=== PATIENT | female | born 1990 | race Caucasian/White ===

== ENCOUNTER 2016-07-09 20:00 | Emergency (ER) | payer OTHER ==
[2016-07-09] MEDS ORDERED: Ketorolac 30 MG/ML SDV IVPUSH ONE (20:35)
[2016-07-09] MEDS ORDERED: Sodium Chloride 0.9% 1,000 ML IV ONE (20:35)
--- NOTE | 2016-07-09 20:48 | EDM.PDOC ---
ED HPI GI/ABDOMINAL - General Chief Complaint: Genitourinary Problem Stated Complaint: BACK/ABDOMINAL PAIN Time Seen by Provider: 07/09/16 20:37 Source of Information: Reports: Patient History Limitations: Reports: No limitations - History of Present Illness INITIAL COMMENTS - FREE TEXT/NARRATIVE: History of present illness: [25-year-old female comes in complaining of burning, urgency, frequency and now low back pain. 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 Past medical history: As per history of present illness and as reviewed below otherwise noncontributory. Surgical history: As per history of present illness and as reviewed below otherwise noncontributory. Social history: No reported history of drug or alcohol abuse. Family history: As per history of present illness and as reviewed below otherwise noncontributory. Physical exam: HEENT: Atraumatic, normocephalic, pupils reactive, negative for conjunctival pallor or scleral icterus, mucous membranes moist, throat clear, neck supple, nontender, trachea midline. Lungs: Clear to auscultation, breath sounds equal bilaterally, chest nontender. Heart: S1S2, regular, negative for clicks, rubs, or JVD. Abdomen: Soft, nondistended, nontender. Negative for masses or hepatosplenomegaly. Positive for costovertebral tenderness. Pelvis: Stable nontender. Genitourinary: Deferred. Rectal: Deferred. Extremities: Atraumatic, negative for cords or calf pain. Neurovascular unremarkable. Neuro: Awake, alert, oriented. Cranial nerves II through XII unremarkable. Cerebellum unremarkable. Motor and sensory unremarkable throughout. Exam nonfocal. Global assessment was benign save subjective complaints of discomfort and positive for costovertebral tenderness as noted Diagnostics: [UA] Therapeutics: [] Impression: [UTI] Plan: [Anabiotic] Definitive disposition and diagnosis as appropriate pending reevaluation and review of above. - Related Data Allergies/ADRs: Allergies Allergy/AdvReac Type Severity Reaction Status Date / Time No Known Allergies Allergy Verified 07/09/16 20:30 Home Meds: Home Meds Acetaminophen [Tylenol Extra Strength] 1,500 mg PO ASDIRECTED PRN 11/17/13 [ History] Nitrofurantoin Monohyd/M-Cryst [Macrobid 100 mg Capsule] 100 mg PO BID #20 capsule 07/09/16 [Rx] Past Medical History - Past Health History Medical/Surgical History: Denies Medical/Surgical History - Infectious Disease History Infectious Disease History: Reports: Chicken pox Social & Family History - Tobacco Use Smoking Status *Q: Current Every Day Smoker Years of Tobacco use: 12 - Alcohol Use Days Per Week of Alcohol Use: 0 - Recreational Drug Use Recreational Drug Use: No ED ROS GENERAL - Review of Systems Review Of Systems: See Below (See history of present illness) ED EXAM, GI/ABD - Physical Exam Exam: See Below (See history of present illness) Course - Vital Signs Last Recorded V/S: Last Vital Signs Temp 36.7 C 07/09/16 20:30 Pulse 76 07/09/16 20:30 Resp 16 07/09/16 20:30 BP 134/87 07/09/16 20:30 Pulse Ox 100 07/09/16 20:30 - Orders/Labs/Meds Orders: Active Orders 24 hr Category Date Time Status Sodium Chloride 0.9% [Normal Saline] 1,000 ml Med 07/09/16 20:35 Ordered IV STAT Medication Orders Sodium Chloride (Normal Saline) 1,000 mls @ 999 mls/hr IV STAT ONE Stop: 07/09/16 21:35 Last Admin: 07/09/16 20:49 Dose: 999 mls/hr Labs: Laboratory Tests 07/09/16 07/09/16 Range/Units 20:25 21:06 Urine Color YELLOW Urine Appearance CLOUDY Urine pH 7.0 (5.0-8.0) Ur Specific [place] 1.015 (1.001-1.035) Urine Protein 100 (NEGATIVE) mg/dL Urine Glucose (UA) NEGATIVE (NEGATIVE) mg/dL Urine Ketones NEGATIVE (NEGATIVE) mg/dL Urine Occult Blood LARGE H (NEGATIVE) Urine Nitrite NEGATIVE (NEGATIVE) Urine Bilirubin NEGATIVE (NEGATIVE) Urine Urobilinogen 0.2 (<2.0) EU/dL Ur Leukocyte Esterase SMALL (NEGATIVE) Urine RBC 25-30 (0-2/HPF) Urine WBC 6-8 (0-5/HPF) Ur Epithelial Cells FEW (NONE-FEW) Urine Bacteria 1+ H (NEGATIVE) Urine HCG, Qual NEGATIVE (NEGATIVE) Meds: Medications Generic Name Dose Route Start Last Admin Trade Name Freq PRN Reason Stop Dose Admin Sodium Chloride 1,000 mls @ 999 mls/hr 07/09/16 20:35 07/09/16 20:49 Normal Saline IV 07/09/16 21:35 999 mls/hr STAT ONE Administration Discontinued Medications Generic Name Dose Route Start Last Admin Trade Name Freq PRN Reason Stop Dose Admin Ketorolac Tromethamine 30 mg 07/09/16 20:35 07/09/16 20:50 Toradol IVPUSH 07/09/16 20:36 30 mg ONETIME ONE Administration Departure - Departure Time of Disposition: 21:30 Disposition: Home, Self-Care 01 Condition: good Clinical Impression: UTI, Urinary tract infectious disease Prescriptions: Nitrofurantoin Monohyd/M-Cryst [Macrobid 100 mg Capsule] 100 mg PO BID #20 capsule Instructions: Urinary Tract Infection, Adult, [id number] Forms: ED Department Discharge Additional Instructions: The following information is given to patients seen in the emergency department who are being discharged to home. This information is to outline your options for follow-up care. We provide all patients seen in our emergency department with a follow-up referral. The need for follow-up, as well as the timing and circumstances, are variable depending upon the specifics of your emergency department visit. If you don't have a primary care physician on staff, we will provide you with a referral. We always advise you to contact your personal physician following an emergency department visit to inform them of the circumstance of the visit and for follow-up with them and/or the need for any referrals to a consulting specialist. The emergency department will also refer you to a specialist when appropriate. This referral assures that you have the opportunity for follow-up care with a specialist. All of these measure are taken in an effort to provide you with optimal care, which includes your follow-up. Under all circumstances we always encourage you to contact your private physician who remains a resource for coordinating your care. When calling for follow-up care, please make the office aware that this follow-up is from your recent emergency room visit. If for any reason you are refused follow-up, please contact the [facility] Emergency Department at and asked to speak to the emergency department charge nurse. Take medication as directed All up with PCP 1-2 days Return to ED as needed as discussed - My Orders Last 24 Hours: My Active Orders 07/09/16 20:35 Sodium Chloride 0.9% [Normal Saline] 1,000 ml IV STAT - Assessment/Plan Last 24 Hours: My Active Orders 07/09/16 20:35 Sodium Chloride 0.9% [Normal Saline] 1,000 ml IV STAT
[2016-07-09 22:24] VITALS: BP 95/63
== END 2016-07-09 22:06 | disposition home or self-care (01) ==
LOC: MW.ED 20:00
DX: N39.0 Urinary tract infection, site not specified (principal); F17.200 Nicotine dependence, unspecified, uncomplicated
CPT/HCPCS: 81001; 81025; 96361; 96374; 99284; J1885; J7040

== ENCOUNTER → 2016-08-01 | Outpatient (CLI) | payer MEDICAID, OTHER | LOC: MW.CHOBGYN 11:37 | PROVIDERS: ATTEND Nurse Practitioner Women's Health | DX: R39.9 Unspecified symptoms and signs involving the genitourinary system (principal); R53.83 Other fatigue; R63.0 Anorexia; R10.2 Pelvic and perineal pain | CPT/HCPCS: 36415; 81001; 82607; 82728; 84443; 84703; 85025 ==

== ENCOUNTER → 2016-08-03 | Outpatient (CLI) | payer OTHER ==
--- NOTE | 2016-08-03 14:03 | US ---
EXAMINATION: Transvaginal pelvic ultrasound HISTORY: Pain COMPARISON: None TECHNIQUE: Grayscale, color Doppler, and spectral Doppler images obtained transvaginally. FINDINGS: Uterus appears normal in size, contour, and echogenicity without a focal hepatic mass. The endometrial stripe measures 1 cm. Right ovary is normal in size, contour, and echogenicity demonstrating normal color and spectral Dop pler flow. Right ovary contains several small follicles. Adjacent to the left ovary there is a solid -appearing vascular round echogenic nodule measuring 2.2 cm. This appears to involve or at least abu t the left ovary. There is a trace free pelvic fluid, likely physiologic. IMPRESSION: 1. Indeterminate vascular 2.2 cm probable left ovarian nodule. If further evaluation is needed consi briana MRI.
== END ==
LOC: MW.US 10:22
PROVIDERS: ATTEND Nurse Practitioner Women's Health
DX: R63.0 Anorexia (principal); R53.83 Other fatigue; R10.2 Pelvic and perineal pain
CPT/HCPCS: 76830; 76830-26

== ENCOUNTER → 2016-08-07 | Outpatient (CLI) | payer OTHER | LOC: MW.CHOBGYN 08:43 | PROVIDERS: ATTEND Nurse Practitioner Women's Health | DX: N83.9 Noninflammatory disorder of ovary, fallopian tube and broad ligament, unspecified (principal) | CPT/HCPCS: 36415; 86304 ==

== ENCOUNTER 2016-09-13 07:37 | Day surgery (SDC) | payer OTHER ==
[2016-09-12 09:52] LABS: CHLORIDE,CL 107 mmol/L (98-110); SODIUM,NA 140 mmol/L (136-146)
[~2016-09-13 07:37] MED LIST: Lactated Ringers 1,000 ML IV SCH; Lidocaine 2% 5 ML SDV ONE; Midazolam 1 MG/ML 2 ML SDV ONE; Ondansetron 4 MG/2 ML SDV ONE; Propofol 200 MG/20 ML SDV ONE; Sodium Chloride 0.9% 10 ML Syringe FLUSH PRN; Sodium Chloride 0.9% 2.5 ML Syringe FLUSH PRN; Succinylcholine/Normal Saline 200 MG/10 ML Syringe ONE; fentaNYL 250 MCG/5 ML SDV ONE
[2016-09-13] MEDS ORDERED: Octyl 2-Cyanoacrylate 1 Tube ONE (07:49)
[2016-09-13] MEDS ORDERED: Scopolamine 1.5 MG Transdermal Patch TRDERM PRN (08:16)
--- NOTE | 2016-09-13 08:16 | PCM.PREANE ---
Preanesthetic Assessment - Anesthesia/Transfusion/Family Hx Anesthesia History: Prior Anesthesia Without Reaction Family History of Anesthesia Reaction: No Transfusion History: No Prior Transfusion(s) - Review of Systems General: No Symptoms Pulmonary: No Symptoms Cardiovascular: No Symptoms Gastrointestinal: No symptoms Neurological: No Symptoms Other: Reports: None - Physical Assessment NPO Status Date: 09/12/16 Height: 1.52 m Weight: 45.359 kg ASA Class: 1 Mental Status: Alert & Oriented x3 Airway Class: Mallampati = 1 Dentition: Reports: Normal Dentition ROM/Head Extension: Full Lungs: Clear to auscultation, Normal respiratory effort Cardiovascular: Regular Rate, Regular Rhythm - Lab Values: Laboratory Last Values WBC 7.35 K/uL (4.0-11.0) 09/12/16 09:19 RBC 4.77 M/uL (4.30-5.90) 09/12/16 09:19 Hgb 14.7 g/dL (12.0-16.0) 09/12/16 09:19 Hct 43.3 % (36.0-46.0) 09/12/16 09:19 MCV 90.8 fL (80.0-98.0) 09/12/16 09:19 MCH 30.8 pg (27.0-32.0) 09/12/16 09:19 MCHC 33.9 g/dL (31.0-37.0) 09/12/16 09:19 RDW Std Deviation 41.8 fl (28.0-62.0) 09/12/16 09:19 RDW Coeff of Arabella 13 % (11.0-15.0) 09/12/16 09:19 Plt Count 310 K/uL (150-400) 09/12/16 09:19 MPV 9.10 fL (7.40-12.00) 09/12/16 09:19 Nucleated RBC % 0.0 /100WBC 09/12/16 09:19 Nucleated RBCs # 0 K/uL 09/12/16 09:19 Sodium 140 mmol/L (136-146) 09/12/16 09:19 Potassium 4.6 mmol/L (3.5-5.1) 09/12/16 09:19 Chloride 107 mmol/L (98-110) 09/12/16 09:19 Carbon Dioxide 25 mmol/L (21-31) 09/12/16 09:19 BUN 9 mg/dL (6.0-23.0) 09/12/16 09:19 Creatinine 0.8 mg/dL (0.6-1.5) 09/12/16 09:19 Est Cr Clr Drug Dosing 76.31 mL/min 09/12/16 09:19 Estimated GFR (MDRD) > 60.0 ml/min 09/12/16 09:19 Glucose 94 mg/dL (60-110) 09/12/16 09:19 Calcium 9.4 mg/dL (8.8-10.8) 09/12/16 09:19 HCG, Qual NEGATIVE (NEG) 09/12/16 09:19 Blood Type O POSITIVE 09/12/16 09:19 Antibody Screen NEGATIVE 09/12/16 09:19 - Allergies Allergies/Adverse Reactions: Allergies Allergy/AdvReac Type Severity Reaction Status Date / Time No Known Allergies Allergy Verified 09/10/16 11:22 - Anesthesia Plan Pre-Op Medication Ordered: Other (scop) - Acknowledgements Anesthesia Type Planned: General Anesthesia Pt an Appropriate Candidate for the Planned Anesthesia: Yes Alternatives and Risks of Anesthesia Discussed w Pt/Guardian: Yes Pt/Guardian Understands and Agrees with Anesthesia Plan: Yes PreAnesthesia Questionnaire - Past Health History Medical/Surgical History: Denies Medical/Surgical History HEENT History: Reports: None Cardiovascular History: Reports: None Respiratory History: Reports: None Gastrointestinal History: Reports: GERD Genitourinary History: Reports: None SKATE HOP History: Reports: Musculoskeletal History: Reports: None Neurological History: Reports: None Psychiatric History: Reports: None Endocrine/Metabolic History: Reports: None Hematologic History: Reports: None Immunologic History: Reports: None Oncologic (Cancer) History: Reports: None Dermatologic History: Reports: None - Infectious Disease History Infectious Disease History: Reports: Chicken Pox - Past Surgical History Head Surgeries/Procedures: Reports: None HEENT Surgical History: Reports: Oral Surgery Other HEENT Surgeries/Procedures: wisdom teeth Female Surgical History: Reports: None - SUBSTANCE USE Smoking Status *Q: Current Every Day Smoker Tobacco Use Within Last Twelve Months: Cigarettes Days Per Week of Alcohol Use: 0 Recreational Drug Use History: Yes Recreational Drug Type: Reports: Marijuana/Hashish Recreational Drug Last Use: 10 years ago - HOME MEDS Home Medications: Home Meds PNV95/Ferrous Fumarate/FA [ Tablet] 1 tab PO DAILY 09/10/16 [History] - CURRENT (IN HOUSE) MEDS Current Meds: Current Medications Lactated Ringer's (Ringers, Lactated) 1,000 mls @ 125 mls/hr IV ASDIRECTED NICHOL Sodium Chloride (Saline Flush) 10 ml FLUSH ASDIRECTED PRN PRN Reason: Keep Vein Open Sodium Chloride (Saline Flush) 2.5 ml FLUSH ASDIRECTED PRN PRN Reason: Keep Vein Open Discontinued Medications Fentanyl (Sublimaze) Confirm Administered Dose 250 mcg .ROUTE .STK-MED ONE Stop: 09/13/16 07:11 Lidocaine (Xylocaine-Mpf 2%) Confirm Administered Dose 5 ml .ROUTE .STK-MED ONE Stop: 09/13/16 07:10 Midazolam HCl (Versed 1 Mg/Ml) Confirm Administered Dose 2 mg .ROUTE .STK-MED ONE Stop: 09/13/16 07:10 Octyl Cyanoacrylate (Dermabond Advance) Confirm Administered Dose 1 applic .ROUTE .STK-MED ONE Stop: 09/13/16 07:50 Ondansetron HCl (Zofran) Confirm Administered Dose 4 mg .ROUTE .STK-MED ONE Stop: 09/13/16 07:10 Propofol (Diprivan 20 Ml) Confirm Administered Dose 200 mg .ROUTE .STK-MED ONE Stop: 09/13/16 07:10 Succinylcholine Chloride (Succinylcholine In Ns Pf) Confirm Administered Dose 200 mg .ROUTE .STK-MED ONE Stop: 09/13/16 07:10
[2016-09-13] MEDS ORDERED: Fluorescein 5 ML Vial ONE (08:33)
[2016-09-13] MEDS ORDERED: Rocuronium 10 MG/ML 10 ML Syringe ONE (09:08)
[2016-09-13] MEDS ORDERED: Phenylephrine/Normal Saline 100 MCG/ML 10 ML Syringe ONE (09:11)
[2016-09-13] MEDS ORDERED: ePHEDrine 50 MG/ML SDV ONE (09:14)
[2016-09-13] MEDS ORDERED: Labetalol 5 MG/ML 5 ML Syringe ONE (09:25)
--- NOTE | 2016-09-13 09:58 | PCM.OPNOTE ---
- General Post-Op/Procedure Note Date of Surgery/Procedure: 09/13/16 Operative Procedure(s): Dignostic Laparscopy removal of L Dermoid cyst. Pre Op Diagnosis: L dermoid cyst. Post-Op Diagnosis: Same Anesthesia Technique: General ET tube Primary Surgeon: Eugene Stone Biomechanical Engineer: Michelle Gutierres EBL in mLs: 25 Complications: None Condition: Good
--- NOTE | 2016-09-13 09:59 | PCM.DCSUM1 ---
Discharge Summary - Discharge Data Discharge Date: 09/13/16 Discharge Disposition: Home, Self-Care 01 Condition: Good - Patient Summary/Data Operative Procedure(s) Performed: Dignostic Laparscopy removal of L Dermoid cyst. - Patient Instructions Diet: Usual Diet as Tolerated Driving: Do Not Drive Showering/Bathing: May Shower Wound/Incision Care: Keep Operative Site/Wound Site Clean and Dry Notify Provider of: Fever, Increased Pain, Swelling and Redness - Discharge Plan Home Medications: Home Meds PNV95/Ferrous Fumarate/FA [ Tablet] 1 tab PO DAILY 09/10/16 [History] - General Info Date of Service: 09/13/16 Functional Status: Reports: pain controlled - Review of Systems General: Reports: No Symptoms HEENT: Reports: no symptoms Pulmonary: Reports: no symptoms Cardiovascular: Reports: No Symptoms Gastrointestinal: Reports: No symptoms Genitourinary: Reports: no symptoms Musculoskeletal: Reports: no symptoms Skin: Reports: no symptoms Neurological: Reports: No Symptoms Psychiatric: Reports: no symptoms - Patient Data Vitals - Most Recent: Last Vital Signs Temp 36.6 C 09/13/16 08:05 Pulse 72 09/13/16 08:05 Resp 16 09/13/16 08:05 BP 105/65 09/13/16 08:05 Pulse Ox 99 09/13/16 08:05 Weight - Most Recent: 45.359 kg Lab Results - Last 24 hrs: Laboratory Results - last 24 hr 09/12/16 Range/Units 09:19 Blood Type O POSITIVE Antibody Screen NEGATIVE Med Orders - Current: Current Medications Fentanyl (Sublimaze) 50 mcg IVPUSH Q5M PRN PRN Reason: Pain (severe 7-10) Stop: 09/14/16 09:42 Lactated Ringer's (Ringers, Lactated) 1,000 mls @ 125 mls/hr IV ASDIRECTED NICHOL Last Admin: 09/13/16 08:20 Dose: 125 mls/hr Scopolamine (Transderm-Scop) 1.5 mg TRDERM Q72H PRN PRN Reason: Nausea/Vomiting Last Admin: 09/13/16 08:25 Dose: 1.5 mg Sodium Chloride (Saline Flush) 10 ml FLUSH ASDIRECTED PRN PRN Reason: Keep Vein Open Sodium Chloride (Saline Flush) 2.5 ml FLUSH ASDIRECTED PRN PRN Reason: Keep Vein Open Discontinued Medications Ephedrine Sulfate (Ephedrine Sulfate) Confirm Administered Dose 50 mg .ROUTE .STK-MED ONE Stop: 09/13/16 09:15 Fentanyl (Sublimaze) Confirm Administered Dose 250 mcg .ROUTE .STK-MED ONE Stop: 09/13/16 07:11 Fluorescein Sodium (Ak-Fluor) Confirm Administered Dose 5 ml .ROUTE .STK-MED ONE Stop: 09/13/16 08:34 Glycopyrrolate () Confirm Administered Dose 1 mg .ROUTE .STK-MED ONE Stop: 09/13/16 09:18 Labetalol HCl (Normodyne) Confirm Administered Dose 25 mg .ROUTE .STK-MED ONE Stop: 09/13/16 09:26 Lidocaine (Xylocaine-Mpf 2%) Confirm Administered Dose 5 ml .ROUTE .STK-MED ONE Stop: 09/13/16 07:10 Midazolam HCl (Versed 1 Mg/Ml) Confirm Administered Dose 2 mg .ROUTE .STK-MED ONE Stop: 09/13/16 07:10 Octyl Cyanoacrylate (Dermabond Advance) Confirm Administered Dose 1 applic .ROUTE .STK-MED ONE Stop: 09/13/16 07:50 Ondansetron HCl (Zofran) Confirm Administered Dose 4 mg .ROUTE .STK-MED ONE Stop: 09/13/16 07:10 Phenylephrine HCl (Phenylephrine In Ns 100 Mcg/Ml) Confirm Administered Dose 1 mg .ROUTE .STK-MED ONE Stop: 09/13/16 09:12 Propofol (Diprivan 20 Ml) Confirm Administered Dose 200 mg .ROUTE .STK-MED ONE Stop: 09/13/16 07:10 Rocuronium Zahl (Zemuron) Confirm Administered Dose 100 mg .ROUTE .STK-MED ONE Stop: 09/13/16 09:09 Succinylcholine Chloride (Succinylcholine In Ns Pf) Confirm Administered Dose 200 mg .ROUTE .STK-MED ONE Stop: 09/13/16 07:10 - Exam General: Reports: alert, oriented HEENT: Reports: Pupils equal, Pupils reactive, EOMI, Mucous membr. moist/pink Neck: Reports: supple Lungs: Reports: Clear to auscultation, Normal respiratory effort Cardiovascular: Reports: Regular Rate, Regular Rhythm Abdomen: Reports: bowel sounds present, soft, no tenderness, no distension (Female) Exam: Normal External Exam, Normal Speculum Exam, Normal Bimanual Exam Rectal (Female) Exam: Normal Exam, Normal Rectal Tone Back Exam: Reports: Normal Inspection, Full Range of Motion Extremities: Reports: no edema, normal pulses Skin: Reports: warm, dry, intact Wound/Incisions: Reports: healing well Neurological: Reports: no new focal deficit Psy/Mental Status: Reports: alert, normal affect, normal mood *Q Meaningful Use (DIS) - VTE *Q VTE Criteria *Q: - Stroke *Q Stroke Criteria *Q: - AMI *Q AMI Criteria *Q:
[2016-09-13] MEDS ORDERED: Ketorolac 30 MG/ML SDV IVPUSH PRN (10:00)
[2016-09-13] MEDS ORDERED: Promethazine 25 MG/ML SDV IM PRN (10:00)
[2016-09-13] MEDS ORDERED: Ondansetron 4 MG/2 ML SDV IVPUSH PRN (10:00)
[2016-09-13] MEDS ORDERED: Morphine 4 MG/ML Syringe IVPUSH PRN (10:00)
[2016-09-13] MEDS ORDERED: Acetaminophen/oxyCODONE 325-5 MG Tab PO PRN ×2 (10:00)
[2016-09-13] MEDS ORDERED: Morphine 2 MG/ML Syringe IVPUSH PRN (10:00)
[2016-09-13] MEDS ORDERED: Ketorolac 30 MG/ML SDV IVPUSH ONE (10:00)
--- NOTE | 2016-09-13 10:08 | PCM.POSTAN ---
POST ANESTHESIA ASSESSMENT - MENTAL STATUS Mental Status: alert, oriented - RESPIRATORY Respiratory Status: respiratory rate WNL, airway patent, O2 saturation stable - CARDIOVASCULAR CV Status: pulse rate WNL, blood pressure stable - GASTROINTESTINAL GI Status: no symptoms - PAIN Pain Score: 0 - POST OP HYDRATION Hydration Status: adequate & stable
[2016-09-13] MEDS: fentaNYL 100 MCG/2 ML SDV IVPUSH PRN ×2 (10:35→10:40)
--- NOTE | 2016-09-13 12:05 | OR ---
SURGEON: Eugene Stone MD DATE OF PROCEDURE: 09/13/2016 PREOPERATIVE DIAGNOSIS: Left dermoid cyst. POSTOPERATIVE DIAGNOSIS: Left dermoid cyst. OPERATION PERFORMED: Diagnostic laparoscopy, excision of left dermoid cyst and peritoneal lavage. THREAD PULLER: FLORINA Kothari ANESTHESIA: General endotracheal intubation, Donald Tadeo and Dr. Jacob. ESTIMATED BLOOD LOSS: Less than 50 mL. COMPLICATIONS: None. FINDINGS: Left dermoid cyst. The right ovary essentially was normal. INDICATIONS FOR SURGERY: Refer to the admit note. PROCEDURE IN DETAIL: The patient was brought to the OR, properly identified, and after adequate level of general anesthesia, the patient was placed in lithotomy position. Prepped and draped in sterile fashion as usual. Straight catheter was used to empty the bladder and then a Hulka manipulator was placed in the uterus for manipulation, then the operation was shifted abdominally. Stab wound was done beneath the umbilicus. The Veress needle was used to enter the peritoneal cavity and that cavity was insufflated with 2.5 L of carbon dioxide and then the central trocar 5 mm was entered infraumbilically using the Visiport technique. Once we entered, we placed the patient in steep Trendelenburg, a 10-12 trocar was placed in the left iliac fossa and two 5 mm trocars, one suprapubically and one in the right iliac fossa done under direct vision. Inspection of the pelvis revealed the above-mentioned dictated findings that the uterus was normal. Both ovaries were normal. The right ovary was normal. The left ovary was large with a dermoid cyst. The operation was started by using Endo grasper to stabilize the left ovary, and using unipolar electrocautery circular incision was done in the ovarian capsules. Once the ovarian capsule was entered, then with sharp and blunt dissection the cyst was identified and again with sharp and blunt dissection using the bipolar electrocautery judiciously, the dermoid cyst was peeled away from the left ovary and removed and placed in an endobag and removed from the abdomen. After that, thorough irrigation of the pelvis and thorough inspection of the left ovary, there was no oozing and no bleeding. After irrigating and satisfying there was no problem and no complication, the procedure was ended and the abdomen was deflated. The instrument and sponge counts were correct. The multiple laparoscopic incisions were closed in layers. The patient tolerated the procedure well and went to recovery room in stable general condition. MIRI WHARTON /[id number]
--- NOTE | 2016-09-13 12:34 | PCM48HPAN ---
Post Anesthesia Note - EVALUATION WITHIN 48HRS OF ANESTHETIC Vital Signs in Normal Range: Yes Patient Participated in Evaluation: Yes Respiratory Function Stable: Yes Airway Patent: Yes Cardiovascular Function Stable: Yes Hydration Status Stable: Yes Pain Control Satisfactory: Yes Nausea and Vomiting Control Satisfactory: Yes Mental Status Recovered: Yes
[2016-09-13 13:28] VITALS: BP 100/64
== END 2016-09-13 12:45 | disposition home or self-care (01) ==
LOC: MW.SDS 07:37
PROVIDERS: ATTEND Obstetrics & Gynecology
PROC: 0UB14ZZ Excision of Left Ovary, Percutaneous Endoscopic Approach (ICD-10-PCS; principal; 2016-09-13)
DX: D27.1 Benign neoplasm of left ovary (principal); F17.210 Nicotine dependence, cigarettes, uncomplicated; Z79.899 Other long term (current) drug therapy; Z98.890 Other specified postprocedural states
CPT/HCPCS: 36415; 58662; 80048; 84703; 85027; 86850; 86900; 86901; A9270; J2250; J2405; J3010; J7120; 00840; 88307; J2704

== ENCOUNTER 2016-09-17 17:15 | Emergency (ER) | payer OTHER ==
--- NOTE | 2016-09-17 17:38 | EDM.PDOC ---
ED HPI GENERAL MEDICAL PROBLEM - General Chief Complaint: General Stated Complaint: PT LIGHTHEADED Time Seen by Provider: 09/17/16 17:27 - History of Present Illness INITIAL COMMENTS - FREE TEXT/NARRATIVE: HISTORY AND PHYSICAL: History of present illness: Patient 26-year-old female presents with concern chest pain she's had this since surgery last week for which she had a gynecological laparoscopy she had pain immediately postop and has had it since been no shortness of breath slightly anxious no nausea no vomiting no other complaints Review of systems: As per history of present illness and below otherwise all systems reviewed and negative. Past medical history: As per history of present illness and as reviewed below otherwise noncontributory. Surgical history: As per history of present illness and as reviewed below otherwise noncontributory. Social history: No reported history of drug or alcohol abuse. Family history: As per history of present illness and as reviewed below otherwise noncontributory. Physical exam: HEENT: Atraumatic, normocephalic, pupils reactive, negative for conjunctival pallor or scleral icterus, mucous membranes moist, throat clear, neck supple, nontender, trachea midline. Lungs: Clear to auscultation, breath sounds equal bilaterally, chest nontender. Heart: S1S2, regular, negative for clicks, rubs, or JVD. Abdomen: Soft, nondistended, nontender. Negative for masses or hepatosplenomegaly. Negative for costovertebral tenderness. Pelvis: Stable nontender. Genitourinary: Deferred. Rectal: Deferred. Extremities: Atraumatic, negative for cords or calf pain. Neurovascular unremarkable. Neuro: Awake, alert, oriented. Cranial nerves II through XII unremarkable. Cerebellum unremarkable. Motor and sensory unremarkable throughout. Exam nonfocal. Diagnostics: CBC CMP EKG chest x-ray d-dimer Therapeutics: None Impression: #1 atypical chest pain Definitive disposition and diagnosis as appropriate pending reevaluation and review of above. right lower rib area Pain Score (Numeric/FACES): 8 - Related Data Allergies Allergy/AdvReac Type Severity Reaction Status Date / Time No Known Allergies Allergy Verified 09/17/16 17:18 Home Meds: Home Meds PNV95/Ferrous Fumarate/FA [ Tablet] 1 tab PO DAILY 09/10/16 [History] Cyclobenzaprine [Flexeril] 1 tab PO Q8HR PRN 09/17/16 [History] Diclofenac Potassium [Zipsor] 50 mg PO ASDIRECTED PRN 09/17/16 [History] oxyCODONE HCl/Acetaminophen [Percocet 7.5-325 mg Tablet] 1 tab PO Q4HR PRN 09/17 [History] Past Medical History - Past Health History Medical/Surgical History: Denies Medical/Surgical History HEENT History: Reports: None Cardiovascular History: Reports: None Respiratory History: Reports: None Gastrointestinal History: Reports: GERD Genitourinary History: Reports: None 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) Other OB/BYN History: ovarian cyst Musculoskeletal History: Reports: None Neurological History: Reports: None Psychiatric History: Reports: None Endocrine/Metabolic History: Reports: None Hematologic History: Reports: None Immunologic History: Reports: None Oncologic (Cancer) History: Reports: None Dermatologic History: Reports: None - Infectious Disease History Infectious Disease History: Reports: Chicken Pox - Past Surgical History Head Surgeries/Procedures: Reports: None HEENT Surgical History: Reports: Oral Surgery Other HEENT Surgeries/Procedures: wisdom teeth GI Surgical History: Reports: Other (See Below) Other GI Surgeries/Procedures: lap surgery due to left ovarian cyst Social & Family History - Family History Family Medical History: Noncontributory - Tobacco Use Smoking Status *Q: Current Every Day Smoker Years of Tobacco use: 15 Packs/Tins Daily: 0.5 - Alcohol Use Days Per Week of Alcohol Use: 0 - Recreational Drug Use Recreational Drug Use: Yes Drug Use in Last 12 Months: No Recreational Drug Type: Reports: Marijuana/Hashish Recreational Drug Last Use: 10 years ago ED ROS GENERAL - Review of Systems Review Of Systems: ROS reveals no pertinent complaints other than HPI. ED EXAM, GENERAL - Physical Exam Exam: See Below (See dictation) Course - Vital Signs Last Recorded V/S: Last Vital Signs Temp 36.9 C 09/17/16 17:19 Pulse 84 09/17/16 17:19 Resp 20 09/17/16 17:19 BP 125/62 09/17/16 17:19 Pulse Ox 98 09/17/16 17:19 - Orders/Labs/Meds Orders: Active Orders 24 hr Category Date Time Status EKG 12 Lead [EKG Documentation Completion] [RC] STAT Care 09/17/16 17:25 Active Chest 2V [CR] Stat Exams 09/17/16 17:29 Taken Chest PE [Ang Chest] [CT] Stat Exams 09/17/16 18:40 Taken Labs: Laboratory Tests 09/17/16 09/17/16 09/17/16 Range/Units 17:37 17:37 17:37 WBC 5.36 (4.0-11.0) K/uL RBC 3.94 L (4.30-5.90) M/uL Hgb 11.9 L (12.0-16.0) g/dL Hct 35.7 L (36.0-46.0) % MCV 90.6 (80.0-98.0) fL MCH 30.2 (27.0-32.0) pg MCHC 33.3 (31.0-37.0) g/dL RDW Std Deviation 41.2 (28.0-62.0) fl RDW Coeff of Arabella 12 (11.0-15.0) % Plt Count 264 (150-400) K/uL MPV 9.20 (7.40-12.00) fL Neut % (Auto) 57.3 (48.0-80.0) % Lymph % (Auto) 30.2 (16.0-40.0) % Davidson % (Auto) 8.4 (0.0-15.0) % Eos % (Auto) 3.2 (0.0-7.0) % Baso % (Auto) 0.9 (0.0-1.5) % Neut # (Auto) 3.1 (1.4-5.7) K/uL Lymph # (Auto) 1.6 (0.6-2.4) K/uL Davidson # (Auto) 0.5 (0.0-0.8) K/uL Eos # (Auto) 0.2 (0.0-0.7) K/uL Baso # (Auto) 0.1 (0.0-0.1) K/uL Nucleated RBC % 0.0 /100WBC Nucleated RBCs # 0 K/uL D-Dimer, Quantitative 0.63 H (0.0-0.52) mg/LFEU Sodium 139 (136-146) mmol/L Potassium 3.8 (3.5-5.1) mmol/L Chloride 108 (98-110) mmol/L Carbon Dioxide 22 (21-31) mmol/L BUN 7 (6.0-23.0) mg/dL Creatinine 0.8 (0.6-1.5) mg/dL Est Cr Clr Drug Dosing 75.54 mL/min Estimated GFR (MDRD) > 60.0 ml/min Glucose 102 (60-110) mg/dL Calcium 8.7 L (8.8-10.8) mg/dL Total Bilirubin 0.3 (0.1-1.5) mg/dL AST 14 (5-40) IU/L ALT 8 (8-54) IU/L Alkaline Phosphatase 49 (40-150) Total Protein 6.4 (6.0-8.0) g/dL Albumin 3.8 (3.5-5.0) g/dL Globulin 2.6 (2.0-3.5) g/dL Albumin/Globulin Ratio 1.5 (1.3-2.8) Meds: Medications Discontinued Medications Generic Name Dose Route Start Last Admin Trade Name Freq PRN Reason Stop Dose Admin Iopamidol 50 ml 09/17/16 19:17 09/17/16 19:20 Isovue Multipack-370 (76%) IVPUSH 09/17/16 19:18 50 ml ONETIME STA Administration Departure - Departure Time of Disposition: 19:47 Disposition: Home, Self-Care 01 Condition: Good Clinical Impression: Chest pain - Discharge Information Forms: ED Department Discharge Additional Instructions: The following information is given to patients seen in the emergency department who are being discharged to home. This information is to outline your options for follow-up care. We provide all patients seen in our emergency department with a follow-up referral. The need for follow-up, as well as the timing and circumstances, are variable depending upon the specifics of your emergency department visit. If you don't have a primary care physician on staff, we will provide you with a referral. We always advise you to contact your personal physician following an emergency department visit to inform them of the circumstance of the visit and for follow-up with them and/or the need for any referrals to a consulting specialist. The emergency department will also refer you to a specialist when appropriate. This referral assures that you have the opportunity for followup care with a specialist. All of these measure are taken in an effort to provide you with optimal care, which includes your followup. Under all circumstances we always encourage you to contact your private physician who remains a resource for coordinating your care. When calling for followup care, please make the office aware that this follow-up is from your recent emergency room visit. If for any reason you are refused follow-up, please contact the [facility] emergency department at and asked to speak to the emergency department charge nurse. Follow-up primary medical doctor 1 today's return as needed as discussed - My Orders Last 24 Hours: My Active Orders 09/17/16 17:25 EKG 12 Lead [EKG Documentation Completion] [RC] STAT 09/17/16 17:29 Chest 2V [CR] Stat 09/17/16 18:40 Chest PE [Ang Chest] [CT] Stat - Assessment/Plan Last 24 Hours: My Active Orders 09/17/16 17:25 EKG 12 Lead [EKG Documentation Completion] [RC] STAT 09/17/16 17:29 Chest 2V [CR] Stat 09/17/16 18:40 Chest PE [Ang Chest] [CT] Stat
[2016-09-17 18:13] LABS: CHLORIDE,CL 108 mmol/L (98-110); SODIUM,NA 139 mmol/L (136-146)
[2016-09-17] MEDS ORDERED: Iopamidol 755 MG/ML 500 ML Multipack Bottle IVPUSH STA (19:17)
[2016-09-17 20:04] VITALS: BP 101/63
--- NOTE | 2016-09-19 14:29 | CR ---
EXAM DATE: 09/17/16 PATIENT'S AGE: 26 Patient: SORAYA MATHUR Facility: [place], [place] Site . Site : 1990 Study: XRay Chest [id number]/3/2017 6:13:23 PM Ordering Physician: Ji Brown Final Report: INDICATION: SOB, TECHNIQUE: Chest 2 views COMPARISON: November 17, 2013. FINDINGS: Cardiovascular and mediastinum: Heart size and vasculature are normal in caliber and appearance. Mediastinum is within normal limits. Lungs and pleural spaces: No focal consolidation. No sign of pleural effusion. No pneumothorax. Bones and soft tissues: No significant findings. IMPRESSION: No acute cardiopulmonary disease. Dictated by Jayjay Mcdonald MD @ 09/17/2016 6:36:15 PM Dictated by: Jayjay Mcdonald MD @ 09/17/2016 18:36:43 (Electronic Signature) Report Signed by Proxy. MTDRancho
--- NOTE | 2016-09-19 14:39 | CT ---
EXAM DATE: 09/17/16 PATIENT'S AGE: 26 Patient: SORAYA MATHUR Facility: [place], [place] Site . Site : 1990 Study: CT Chest Angio [id number]/3/2017 7:19:18 PM Ordering Physician: Ji Brown Final Report: INDICATION: sob, R sided abd and rib pain/ pinching feeling since laproscopic surgery 09/13/26 TECHNIQUE: CT chest pulmonary angiogram acquired with IV contrast COMPARISON: None FINDINGS: Cardiovascular structures: Normal vascular enhancement of the pulmonary arteries , no sign of pulmonary embolism. Heart size is normal. No sign of aneurysm or dissection in the thoracic aorta. Mediastinum and pierce: No mass or adenopathy. Lungs: No focal in addition, pleural effusion, or pneumothorax. Chest wall and axilla: No mass or adenopathy. Bones: No significant findings. Upper abdomen: Unremarkable. IMPRESSION: 1. No evidence of pulmonary embolism. 2. No acute cardiopulmonary disease Dictated by Jayjay Mcdonald MD @ 09/17/2016 7:42:32 PM Dictated by: Jayjay Mcdonald MD @ 09/17/2016 19:42:43 (Electronic Signature) Report Signed by Proxy. [facility]
== END 2016-09-17 20:01 | disposition home or self-care (01) ==
LOC: MW.ED 17:15
DX: R07.89 Other chest pain (principal); K21.9 Gastro-esophageal reflux disease without esophagitis; F17.210 Nicotine dependence, cigarettes, uncomplicated; Z79.899 Other long term (current) drug therapy
CPT/HCPCS: 36415; 71020; 71275; 80053; 85025; 85379; 93005; 99284; Q9967; 99283

== ENCOUNTER 2018-09-24 14:55 | Emergency (ER) | payer SELFPAY ==
--- NOTE | 2018-09-24 15:16 | EDM.PDOC ---
ED HPI GENERAL MEDICAL PROBLEM - General Chief Complaint: ENT Problem Stated Complaint: LEFT SIDE OF FACE SWOLLEN AND PAINFUL Time Seen by Provider: 09/24/18 15:14 Source of Information: Reports: Patient History Limitations: Reports: No Limitations - History of Present Illness INITIAL COMMENTS - FREE TEXT/NARRATIVE: HISTORY AND PHYSICAL: History of present illness: Patient is 28-year-old female presents to the ED with complaint of sore throat. She states she started feeling sick last night with fevers, chills, body aches. She complains of a sore throat and swelling on the left side of her throat. She states it is painful to swallow but she has no difficulty swallowing and denies nausea, vomiting, abdominal pain, cough, shortness of breath, difficult to breathing, or trismus. Review of systems: As per history of present illness and below otherwise all systems reviewed and negative. Past medical history: As per history of present illness and as reviewed below otherwise noncontributory. Surgical history: As per history of present illness and as reviewed below otherwise noncontributory. Social history: No reported history of drug or alcohol abuse. Family history: As per history of present illness and as reviewed below otherwise noncontributory. Physical exam: General: Patient sitting comfortably in no acute distress and nontoxic appearing HEENT: Tonsils are 2+ and erythematous with exudate bilaterally. Atraumatic, normocephalic, pupils reactive, negative for conjunctival pallor or scleral icterus, mucous membranes moist, throat clear, neck supple, nontender, trachea midline. No meningeal signs. Lungs: Clear to auscultation, breath sounds equal bilaterally, chest nontender. Heart: S1S2, regular, negative for clicks, rubs, or overt murmur. Abdomen: Soft, nondistended, nontender. Negative for masses or hepatosplenomegaly. Negative for costovertebral tenderness. No rigidity, rebound , guarding. Pelvis: Stable nontender. Genitourinary: Deferred. Rectal: Deferred. Extremities: Atraumatic, negative for cords or calf pain. Neurovascular unremarkable. Neuro: Awake, alert, oriented. Cranial nerves II through XII unremarkable. Cerebellum unremarkable. Motor and sensory unremarkable throughout. Exam nonfocal. Notes: Diagnostics: None Therapeutics: None Prescriptions: Penicillin Impression: Acute tonsillitis Plan: 1. Take antibiotic as instructed. Alternate Tylenol and Motrin as needed as discussed. 2. Follow-up with primary care provider 3. Return to ED as needed as discussed Definitive disposition and diagnosis as appropriate pending reevaluation and review of above. 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 Musculoskeletal History: Reports: None Neurological History: Reports: None Psychiatric History: Reports: None Endocrine/Metabolic History: Reports: None Hematologic History: Reports: None Immunologic History: Reports: None Oncologic (Cancer) History: Reports: None Dermatologic History: Reports: None - Infectious Disease History Infectious Disease History: Reports: Chicken Pox - Past Surgical History GI Surgical History: Reports: None Social & Family History - Family History Family Medical History: Noncontributory ED ROS ENT - Review of Systems Review Of Systems: ROS reveals no pertinent complaints other than HPI. ED EXAM, ENT - Physical Exam Exam: See Below (See dictation) Course - Vital Signs Last Recorded V/S: Last Vital Signs Temp 97.6 F 09/24/18 15:07 Pulse 114 H 09/24/18 15:07 Resp 22 H 09/24/18 15:07 BP 106/70 09/24/18 15:07 Pulse Ox 98 09/24/18 15:07 Departure - Departure Time of Disposition: 15:15 Disposition: Home, Self-Care 01 Condition: Good Clinical Impression: Acute tonsillitis - Discharge Information Prescriptions: Penicillin V Potassium [Veetids] 500 mg PO BID 10 Days #20 tab Referrals: PCP,None [Primary Care Provider] - Forms: ED Department Discharge Additional Instructions: The following information is given to patients seen in the emergency department who are being discharged to home. This information is to outline your options for follow-up care. We provide all patients seen in our emergency department with a follow-up referral. The need for follow-up, as well as the timing and circumstances, are variable depending upon the specifics of your emergency department visit. If you don't have a primary care physician on staff, we will provide you with a referral. We always advise you to contact your personal physician following an emergency department visit to inform them of the circumstance of the visit and for follow-up with them and/or the need for any referrals to a consulting specialist. The emergency department will also refer you to a specialist when appropriate. This referral assures that you have the opportunity for follow-up care with a specialist. All of these measure are taken in an effort to provide you with optimal care, which includes your follow-up. Under all circumstances we always encourage you to contact your private physician who remains a resource for coordinating your care. When calling for follow-up care, please make the office aware that this follow-up is from your recent emergency room visit. If for any reason you are refused follow-up, please contact the [facility] Emergency Department at and asked to speak to the emergency department charge nurse. [facility] [address] [place] [id number] [place] [address] 1. Take antibiotic as instructed. Alternate Tylenol and Motrin as needed as discussed. 2. Follow-up with primary care provider 3. Return to ED as needed as discussed
[2018-09-24 15:48] VITALS: BP 113/73
== END 2018-09-24 15:38 | disposition home or self-care (01) ==
LOC: MW.ED 14:55
DX: J03.90 Acute tonsillitis, unspecified (principal)
CPT/HCPCS: 99282

== ENCOUNTER 2018-11-09 09:19 | Emergency (ER) | payer OTHER ==
[2018-11-09 09:23] VITALS: BP 111/71
--- NOTE | 2018-11-09 09:32 | EDM.PDOC ---
ED HPI GENERAL MEDICAL PROBLEM - General Chief Complaint: General Stated Complaint: TOOTH PAIN Time Seen by Provider: 11/09/18 09:21 - History of Present Illness INITIAL COMMENTS - FREE TEXT/NARRATIVE: HISTORY AND PHYSICAL: History of present illness: Patient 28-year-old female who presents with a concern of dental pain she's had a cavity in the left upper molar and now is developed discomfort she has yet to secure dental appointment is been no fever chills nausea vomiting or other complaints Review of systems: As per history of present illness and below otherwise all systems reviewed and negative. Past medical history: As per history of present illness and as reviewed below otherwise noncontributory. Surgical history: As per history of present illness and as reviewed below otherwise noncontributory. Social history: No reported history of drug or alcohol abuse. Family history: As per history of present illness and as reviewed below otherwise noncontributory. Physical exam: HEENT: Atraumatic, normocephalic, pupils reactive, negative for conjunctival pallor or scleral icterus, mucous membranes moist, throat clear, neck supple, nontender, trachea midline. Generally poor dentition dental caries noted left upper molar with gingival edema. Lungs: Clear to auscultation, breath sounds equal bilaterally, chest nontender. Heart: S1S2, regular, negative for clicks, rubs, or JVD. Abdomen: Soft, nondistended, nontender. Negative for masses or hepatosplenomegaly. Negative for costovertebral tenderness. Pelvis: Stable nontender. Genitourinary: Deferred. Rectal: Deferred. Extremities: Atraumatic, negative for cords or calf pain. Neurovascular unremarkable. Neuro: Awake, alert, oriented. Cranial nerves II through XII unremarkable. Cerebellum unremarkable. Motor and sensory unremarkable throughout. Exam nonfocal. Diagnostics: None Therapeutics: None Impression: #1 dentalgia #2 dental ines rule out dental abscess Definitive disposition and diagnosis as appropriate pending reevaluation and review of above. left dentla Pain Score (Numeric/FACES): 8 - Related Data Allergies Allergy/AdvReac Type Severity Reaction Status Date / Time No Known Allergies Allergy Verified 11/09/18 09:20 Home Meds: Home Meds . 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 Musculoskeletal History: Reports: None Neurological History: Reports: None Psychiatric History: Reports: None Endocrine/Metabolic History: Reports: None Hematologic History: Reports: None Immunologic History: Reports: None Oncologic (Cancer) History: Reports: None Dermatologic History: Reports: None - Infectious Disease History Infectious Disease History: Reports: Chicken Pox - Past Surgical History Head Surgeries/Procedures: Reports: None HEENT Surgical History: Reports: None Cardiovascular Surgical History: Reports: None Respiratory Surgical History: Reports: None GI Surgical History: Reports: None Female Surgical History: Reports: None Endocrine Surgical History: Reports: None Neurological Surgical History: Reports: None Musculoskeletal Surgical History: Reports: None Oncologic Surgical History: Reports: None Dermatological Surgical History: Reports: None Social & Family History - Family History Family Medical History: Noncontributory - Tobacco Use Smoking Status *Q: Current Every Day Smoker Years of Tobacco use: 17 Packs/Tins Daily: 0.5 - Caffeine Use Caffeine Use: Reports: Coffee, Energy Drinks, Soda, Tea - Recreational Drug Use Recreational Drug Use: No ED ROS GENERAL - Review of Systems Review Of Systems: ROS reveals no pertinent complaints other than HPI. ED EXAM, GENERAL - Physical Exam Exam: See Below (See dictation) Course - Vital Signs Last Recorded V/S: Last Vital Signs Temp 35.9 C 11/09/18 09:21 Pulse 82 11/09/18 09:21 Resp 18 11/09/18 09:21 BP 111/71 11/09/18 09:21 Pulse Ox 98 11/09/18 09:21 Departure - Departure Time of Disposition: 09:31 Disposition: Home, Self-Care 01 Condition: Good Clinical Impression: Dentalgia, Dental abscess, Dental caries - Discharge Information Referrals: PCP,Unknown [Primary Care Provider] - Additional Instructions: The following information is given to patients seen in the emergency department who are being discharged to home. This information is to outline your options for follow-up care. We provide all patients seen in our emergency department with a follow-up referral. The need for follow-up, as well as the timing and circumstances, are variable depending upon the specifics of your emergency department visit. If you don't have a primary care physician on staff, we will provide you with a referral. We always advise you to contact your personal physician following an emergency department visit to inform them of the circumstance of the visit and for follow-up with them and/or the need for any referrals to a consulting specialist. The emergency department will also refer you to a specialist when appropriate. This referral assures that you have the opportunity for followup care with a specialist. All of these measure are taken in an effort to provide you with optimal care, which includes your followup. Under all circumstances we always encourage you to contact your private physician who remains a resource for coordinating your care. When calling for followup care, please make the office aware that this follow-up is from your recent emergency room visit. If for any reason you are refused follow-up, please contact the [facility] emergency department at and asked to speak to the emergency department charge nurse. Augmentin is prescribed Motrin/Tylenol as directed dental balls as directed follow-up dentist as discussed return as needed as discussed[]
== END 2018-11-09 09:50 | disposition home or self-care (01) ==
LOC: MW.ED 09:19
DX: K04.7 Periapical abscess without sinus (principal); K02.9 Dental caries, unspecified; F17.210 Nicotine dependence, cigarettes, uncomplicated
CPT/HCPCS: 99282

== ENCOUNTER 2018-12-04 14:00 | Emergency (ER) | payer SELFPAY ==
--- NOTE | 2018-12-04 14:04 | EDM.PDOC ---
ED HPI GENERAL MEDICAL PROBLEM - General Stated Complaint: SINUS PRESSURE Time Seen by Provider: 12/04/18 14:02 Source of Information: Reports: Patient History Limitations: Reports: No Limitations - History of Present Illness INITIAL COMMENTS - FREE TEXT/NARRATIVE: HISTORY AND PHYSICAL: History of present illness: Patient is a 28-year-old female who presents to the emergency room with complaints of generalized body aches, bilateral ear pain, "muffled hearing", sore throat and subjective fevers. She states symptoms have been progressively getting worse over the past few days. She was seen last month in the emergency room for a dental abscess, completed antibiotics approximately a week and a half ago. She states she had a cancel her dentist appointment as her insurance is not fully instated yet. Patient denies any chills, headache, change in vision, syncope or near syncope. Denies any chest pain, back pain, shortness of breath or cough. Denies any abdominal pain, nausea, vomiting, diarrhea, constipation or dysuria. Patient has been eating and drinking appropriately. Review of systems: As per history of present illness and below otherwise all systems reviewed and negative. Past medical history: As per history of present illness and as reviewed below otherwise noncontributory. Surgical history: As per history of present illness and as reviewed below otherwise noncontributory. Social history: See social history for further information Family history: As per history of present illness and as reviewed below otherwise noncontributory. Physical exam: General: Well-developed and well-nourished 28 her old female. Alert and oriented. Nontoxic appearing and in no acute distress. HEENT: Atraumatic, normocephalic, pupils equal and reactive bilaterally, negative for conjunctival pallor or scleral icterus, mucous membranes moist, left TM is erythematous with dull light reflex and no bulging, right TM normal, posterior oropharynx is erythematous without exudate or pillar fullness or shifting, neck supple, nontender, trachea midline. No drooling or trismus noted. No meningeal signs. No hot potato voice noted. Lungs: Clear to auscultation, breath sounds equal bilaterally, chest nontender. Heart: S1S2, regular rate and rhythm without overt murmur Abdomen: Soft, nondistended, nontender. Negative for masses or hepatosplenomegaly. Negative for costovertebral tenderness. Pelvis: Stable nontender. Skin: Intact, warm, dry. No lesions or rashes noted. Extremities: Atraumatic, moves all extremities per self without difficulty or deficits, negative for cords or calf pain. Neurovascular unremarkable. Neuro: Awake, alert, oriented. Cranial nerves II through XII unremarkable. Cerebellum unremarkable. Motor and sensory unremarkable throughout. Exam nonfocal. Notes: Patient has recently completed Augmentin. Negative strep and flu screening. Supportive care measures were reviewed and discussed. Voices understanding and is agreeable to plan of care. Denies any further questions or concerns at this time. Diagnostics: Influenza, strep Therapeutics: None Prescription: Clindamycin, Phenergan w/ codeine (#4oz) Impression: Otitis media, left Pharyngitis Plan: 1. Take your medication as directed. 2. Warm Salt water gargles (rinse and spit) 3-4 x daily. Please get a new tooth brush after completion of your medication 3. Tylenol and or ibuprofen as needed for pain management. 4. Follow-up with your primary care provider in the next 1-2 days. Return to the ED as needed and as discussed. Definitive disposition and diagnosis as appropriate pending reevaluation and review of above. Throat Pain Score (Numeric/FACES): 8 - Related Data Allergies Allergy/AdvReac Type Severity Reaction Status Date / Time No Known Allergies Allergy Verified 11/09/18 09:20 Home Meds: Home Meds . 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 Musculoskeletal History: Reports: None Neurological History: Reports: None Psychiatric History: Reports: None Endocrine/Metabolic History: Reports: None Hematologic History: Reports: None Immunologic History: Reports: None Oncologic (Cancer) History: Reports: None Dermatologic History: Reports: None - Infectious Disease History Infectious Disease History: Reports: Chicken Pox - Past Surgical History Head Surgeries/Procedures: Reports: None HEENT Surgical History: Reports: None Cardiovascular Surgical History: Reports: None Respiratory Surgical History: Reports: None GI Surgical History: Reports: None Female Surgical History: Reports: None Endocrine Surgical History: Reports: None Neurological Surgical History: Reports: None Musculoskeletal Surgical History: Reports: None Oncologic Surgical History: Reports: None Dermatological Surgical History: Reports: None Social & Family History - Family History Family Medical History: Noncontributory - Caffeine Use Caffeine Use: Reports: Coffee, Energy Drinks, Soda, Tea ED ROS ENT - Review of Systems Review Of Systems: ROS reveals no pertinent complaints other than HPI. ED EXAM, ENT - Physical Exam Exam: See Below (See dictation) Course - Vital Signs Last Recorded V/S: Last Vital Signs Temp 98.6 F 12/04/18 14:13 Pulse 98 12/04/18 14:13 Resp 20 12/04/18 14:13 BP 104/68 12/04/18 14:13 Pulse Ox 97 12/04/18 14:13 - Orders/Labs/Meds Orders: Active Orders 24 hr Category Date Time Status CULTURE STREP A CONFIRMATION [] Stat Lab 12/04/18 14:28 Results STREP SCRN A RAPID W CULT CONF [RM] Stat Lab 12/04/18 14:28 Results Departure - Departure Time of Disposition: 15:12 Disposition: Home, Self-Care 01 Clinical Impression: Pharyngitis Qualifiers: Pharyngitis/tonsillitis etiology: unspecified etiology Qualified Code(s): J02.9 - Acute pharyngitis, unspecified Otitis media Qualifiers: Otitis media type: suppurative Chronicity: acute Laterality: left Recurrence: non-recurrent Spontaneous tympanic membrane rupture: without spontaneous rupture Qualified Code(s): H66.002 - Acute suppurative otitis media without spontaneous rupture of ear drum, left ear - Discharge Information Instructions: Otitis Media, Adult, [id number], Pharyngitis, [id number] Referrals: PCP,None [Primary Care Provider] - Forms: ED Department Discharge Additional Instructions: The following information is given to patients seen in the emergency department who are being discharged to home. This information is to outline your options for follow-up care. We provide all patients seen in our emergency department with a follow-up referral. The need for follow-up, as well as the timing and circumstances, are variable depending upon the specifics of your emergency department visit. If you don't have a primary care physician on staff, we will provide you with a referral. We always advise you to contact your personal physician following an emergency department visit to inform them of the circumstance of the visit and for follow-up with them and/or the need for any referrals to a consulting specialist. The emergency department will also refer you to a specialist when appropriate. This referral assures that you have the opportunity for follow-up care with a specialist. All of these measure are taken in an effort to provide you with optimal care, which includes your follow-up. Under all circumstances we always encourage you to contact your private physician who remains a resource for coordinating your care. When calling for follow-up care, please make the office aware that this follow-up is from your recent emergency room visit. If for any reason you are refused follow-up, please contact the [facility] Emergency Department at and asked to speak to the emergency department charge nurse. [facility] [address] [place] [address] [place] [address] 1. Take your medication as directed. 2. Warm Salt water gargles (rinse and spit) 3-4 x daily. Please get a new tooth brush after completion of your medication 3. Tylenol and or ibuprofen as needed for pain management. 4. Follow-up with your primary care provider in the next 1-2 days. Return to the ED as needed and as discussed. - My Orders Last 24 Hours: My Active Orders 12/04/18 14:28 CULTURE STREP A CONFIRMATION [RM] Stat STREP SCRN A RAPID W CULT CONF [] Stat - Assessment/Plan Last 24 Hours: My Active Orders 12/04/18 14:28 CULTURE STREP A CONFIRMATION [RM] Stat STREP SCRN A RAPID W CULT CONF [] Stat
[2018-12-04 14:46] VITALS: BP 104/68; PULSE 98
== END 2018-12-04 15:55 | disposition home or self-care (01) ==
LOC: MW.ED 14:00
DX: J02.9 Acute pharyngitis, unspecified (principal); H66.002 Acute suppurative otitis media without spontaneous rupture of ear drum, left ear
CPT/HCPCS: 87081; 87804; 87880-QW; 99283

== ENCOUNTER 2019-01-24 13:19 | Emergency (ER) | payer SELFPAY ==
[2019-01-24 13:26] VITALS: BP 112/71; PULSE 94
--- NOTE | 2019-01-24 13:31 | EDM.PDOC ---
ED HPI GENERAL MEDICAL PROBLEM - General Chief Complaint: ENT Problem Stated Complaint: SORE THROAT Time Seen by Provider: 01/24/19 13:30 Source of Information: Reports: Patient History Limitations: Reports: No Limitations - History of Present Illness INITIAL COMMENTS - FREE TEXT/NARRATIVE: HISTORY AND PHYSICAL: History of present illness: Patient is a 28-year-old female presents to the ED with complaint of sore throat , subjective fevers, and body aches x 3 days. She states she has pain from the base of her neck all the way down her back. She also states she has a dry cough and sinus pressure and nasal congestion. She denies injury or trauma. She denies headache, nausea, vomiting, abdominal pain, diarrhea. Review of systems: As per history of present illness and below otherwise all systems reviewed and negative. Past medical history: As per history of present illness and as reviewed below otherwise noncontributory. Surgical history: As per history of present illness and as reviewed below otherwise noncontributory. Social history: No reported history of drug or alcohol abuse. Family history: As per history of present illness and as reviewed below otherwise noncontributory. Physical exam: General: Patient sitting comfortably in no acute distress and nontoxic appearing HEENT: Bilateral maxillary sinus tenderness to palpation. Tonsils are 2+ and erythematous with exudate. Atraumatic, normocephalic, pupils reactive, negative for conjunctival pallor or scleral icterus, mucous membranes moist, throat clear , neck supple, nontender, trachea midline. No meningeal signs. Lungs: Clear to auscultation, breath sounds equal bilaterally, chest nontender. Heart: S1S2, regular, negative for clicks, rubs, or overt murmur. Abdomen: Soft, nondistended, nontender. Negative for masses or hepatosplenomegaly. Negative for costovertebral tenderness. No rigidity, rebound , guarding. Pelvis: Stable nontender. Genitourinary: Deferred. Rectal: Deferred. Spine: No vertebral tenderness or step offs to palpation. Extremities: Atraumatic, negative for cords or calf pain. Neurovascular unremarkable. Neuro: Awake, alert, oriented. Cranial nerves II through XII unremarkable. Cerebellum unremarkable. Motor and sensory unremarkable throughout. Exam nonfocal. Notes: Diagnostics: [] Therapeutics: [] Prescriptions: Augmentin Impression: Acute tonsillitis, acute sinusitis Plan: Take antibiotic as instructed Alternate tylenol and motrin Follow up with primary care provider Return to ED as needed as discussed Definitive disposition and diagnosis as appropriate pending reevaluation and review of above. 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 Musculoskeletal History: Reports: None Neurological History: Reports: None Psychiatric History: Reports: None Endocrine/Metabolic History: Reports: None Hematologic History: Reports: None Immunologic History: Reports: None Oncologic (Cancer) History: Reports: None Dermatologic History: Reports: None - Infectious Disease History Infectious Disease History: Reports: Chicken Pox - Past Surgical History Head Surgeries/Procedures: Reports: None HEENT Surgical History: Reports: None Cardiovascular Surgical History: Reports: None Respiratory Surgical History: Reports: None GI Surgical History: Reports: None Female Surgical History: Reports: None Endocrine Surgical History: Reports: None Neurological Surgical History: Reports: None Musculoskeletal Surgical History: Reports: None Oncologic Surgical History: Reports: None Dermatological Surgical History: Reports: None Social & Family History - Family History Family Medical History: Noncontributory - Tobacco Use Smoking Status *Q: Current Every Day Smoker Years of Tobacco use: 17 Packs/Tins Daily: 0.7 - Caffeine Use Caffeine Use: Reports: Coffee - Recreational Drug Use Recreational Drug Use: No ED ROS ENT - Review of Systems Review Of Systems: ROS reveals no pertinent complaints other than HPI. ED EXAM, ENT - Physical Exam Exam: See Below (see dictation) Course - Vital Signs Last Recorded V/S: Last Vital Signs Temp 97.5 F 01/24/19 13:24 Pulse 94 01/24/19 13:24 Resp 18 01/24/19 13:24 BP 112/71 01/24/19 13:24 Pulse Ox 94 L 01/24/19 13:24 - Orders/Labs/Meds Orders: Active Orders 24 hr Category Date Time Status CULTURE STREP A CONFIRMATION [] Stat Lab 01/24/19 13:28 Results STREP SCRN A RAPID W CULT CONF [] Stat Lab 01/24/19 13:28 Results Departure - Departure Time of Disposition: 13:59 Disposition: Home, Self-Care 01 Condition: Good Clinical Impression: Acute tonsillitis - Discharge Information Prescriptions: Amoxicillin/Potassium Clav [Augmentin 875-125 Tablet] 1 each PO BID 7 Days #14 tablet Instructions: Tonsillitis, [id number] Referrals: PCP,None [Primary Care Provider] - Forms: ED Department Discharge Additional Instructions: The following information is given to patients seen in the emergency department who are being discharged to home. This information is to outline your options for follow-up care. We provide all patients seen in our emergency department with a follow-up referral. The need for follow-up, as well as the timing and circumstances, are variable depending upon the specifics of your emergency department visit. If you don't have a primary care physician on staff, we will provide you with a referral. We always advise you to contact your personal physician following an emergency department visit to inform them of the circumstance of the visit and for follow-up with them and/or the need for any referrals to a consulting specialist. The emergency department will also refer you to a specialist when appropriate. This referral assures that you have the opportunity for follow-up care with a specialist. All of these measure are taken in an effort to provide you with optimal care, which includes your follow-up. Under all circumstances we always encourage you to contact your private physician who remains a resource for coordinating your care. When calling for follow-up care, please make the office aware that this follow-up is from your recent emergency room visit. If for any reason you are refused follow-up, please contact the [facility] Emergency Department at and asked to speak to the emergency department charge nurse. [facility] [address] [place] [id number] [id number] Take antibiotic as instructed Alternate tylenol and motrin Follow up with primary care provider Return to ED as needed as discussed - My Orders Last 24 Hours: My Active Orders 01/24/19 13:28 CULTURE STREP A CONFIRMATION [RM] Stat STREP SCRN A RAPID W CULT CONF [RM] Stat - Assessment/Plan Last 24 Hours: My Active Orders 01/24/19 13:28 CULTURE STREP A CONFIRMATION [RM] Stat STREP SCRN A RAPID W CULT CONF [RM] Stat
== END 2019-01-24 14:08 | disposition home or self-care (01) ==
LOC: MW.ED 13:19
DX: J03.90 Acute tonsillitis, unspecified (principal); J01.90 Acute sinusitis, unspecified; F17.210 Nicotine dependence, cigarettes, uncomplicated
CPT/HCPCS: 87081; 87804; 87880-QW; 99283

== ENCOUNTER 2019-01-25 23:44 | Emergency (ER) | payer SELFPAY ==
[2019-01-26] MEDS ORDERED: Sodium Chloride 0.9% 1,000 ML IV ONE (00:18)
[2019-01-26] MEDS ORDERED: Ketorolac 30 MG/ML SDV IVPUSH ONE (00:18)
[2019-01-26] MEDS ORDERED: Sodium Chloride 0.9% 2.5 ML Syringe FLUSH PRN (00:18)
[2019-01-26] MEDS ORDERED: Sodium Chloride 0.9% 10 ML Syringe FLUSH PRN (00:18)
--- NOTE | 2019-01-26 00:22 | EDM.PDOC ---
ED HPI GENERAL MEDICAL PROBLEM - General Chief Complaint: General Stated Complaint: LOWER BACK PAIN AND FEVER Time Seen by Provider: 01/26/19 00:05 - History of Present Illness INITIAL COMMENTS - FREE TEXT/NARRATIVE: HISTORY AND PHYSICAL: History of present illness: The patient is a 28-year-old female who was seen here yesterday with complaints of upper respiratory symptoms and sore throat and was diagnosed with tonsillitis clinically although her strep test was negative and she was started on Augmentin. The patient says she is still having pain with swallow and because it so uncomfortable she doesn't want to eat or drink very much and she has had decreased by mouth intake. She said that this evening she noticed her urine was very dark in color and there was some discomfort with urination so now she is also concerned about a UTI. She denies but she says she has been having some related complaints and she has done home several times that is negative but she still expressed that concern to me kassidyight. She has no abdominal pain vomiting or diarrhea and she had some nausea earlier today but it has subsided. The patient has not had a fever and she has had a dry cough. She says her ears are plugged up but they are not uncomfortable. Patient says she has taken some Tylenol throughout the last 24 hours but because she is not eating is upsetting her stomach and she has not taken adequate doses in the adequate time intervals Review of systems: As per history of present illness and below otherwise all systems reviewed and negative. Past medical history: As per history of present illness and as reviewed below otherwise noncontributory. Surgical history: As per history of present illness and as reviewed below otherwise noncontributory. Social history: No reported history of drug or alcohol abuse. Family history: As per history of present illness and as reviewed below otherwise noncontributory. Physical exam: General: Well-developed well-nourished thin female who is nontoxic and speaks clearly in the ED without hoarse or muffled voice and she is not breathless but she does have some nasal quality. Vital signs are noted by me HEENT: Atraumatic, normocephalic, pupils reactive, negative for conjunctival pallor or scleral icterus, mucous membranes moist, throat with bilateral exudates in the tonsillar crypts but no gross swelling and uvula is midline, there is no other oropharyngeal swelling, there is shotty anterior cervical adenopathy and no posterior adenopathy or nuchal rigidity,, neck supple, nontender, trachea midline. Lungs: Clear to auscultation, breath sounds equal bilaterally, chest nontender. Easing stridor or work of breathing Heart: S1S2, regular rhythm and tachycardic rate of my evaluation but no overt murmurs Abdomen: Soft, nondistended, nontender. NABS Negative for costovertebral tenderness. Pelvis: Deferred Genitourinary: Deferred. Rectal: Deferred. Extremities: Atraumatic, negative for cords or calf pain. Neurovascular unremarkable. Neuro: Awake, alert, oriented. Cranial nerves II through XII unremarkable. Cerebellum unremarkable. Motor and sensory unremarkable throughout. Exam nonfocal. Diagnostics: CBC CMP UA with reflex UCG lactic acid Therapeutics: IV fluids Toradol viscous lidocaine,tylenol The patient is sleeping in the ED and I did wake her and inform her of her testing results. She is aware that she is not she does not have UTI but she is clinically and by urine test dehydrated with ketones. I will give her another fluid bolus and she says that the viscous lidocaine did help so I will give her prescription for home. I will also give her from [facility] some Tylenol 3 elixir to help with the pain management so she can continue pushing fluids. The patient's heart rate and temperature have normalized. Impression: Tonsillitis on therapy, dehydration secondary to odynophagia Definitive disposition and diagnosis as appropriate pending reevaluation and review of above. 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 WHITE WASHER 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 History: ovarian cyst Musculoskeletal History: Reports: None Neurological History: Reports: None Psychiatric History: Reports: None Endocrine/Metabolic History: Reports: None Hematologic History: Reports: None Immunologic History: Reports: None Oncologic (Cancer) History: Reports: None Dermatologic History: Reports: None - Infectious Disease History Infectious Disease History: Reports: Chicken Pox - Past Surgical History Head Surgeries/Procedures: Reports: None HEENT Surgical History: Reports: None Cardiovascular Surgical History: Reports: None Respiratory Surgical History: Reports: None GI Surgical History: Reports: None Female Surgical History: Reports: None Endocrine Surgical History: Reports: None Neurological Surgical History: Reports: None Musculoskeletal Surgical History: Reports: None Oncologic Surgical History: Reports: None Dermatological Surgical History: Reports: None Social & Family History - Family History Family Medical History: Noncontributory - Tobacco Use Smoking Status *Q: Current Every Day Smoker Years of Tobacco use: 17 Packs/Tins Daily: 0.5 - Caffeine Use Caffeine Use: Reports: Coffee, Energy Drinks, Tea - Recreational Drug Use Recreational Drug Use: No ED ROS GENERAL - Review of Systems Review Of Systems: ROS reveals no pertinent complaints other than HPI. ED EXAM, GENERAL - Physical Exam Exam: See Below (See dictation) Course - Vital Signs Last Recorded V/S: Last Vital Signs Temp 38.3 C H 01/26/19 00:50 Pulse 110 H 01/25/19 23:57 Resp 22 H 01/25/19 23:57 BP 108/68 01/25/19 23:57 Pulse Ox 96 01/25/19 23:57 - Orders/Labs/Meds Orders: Active Orders 24 hr Category Date Time Status Sodium Chloride 0.9% [Normal Saline] 500 ml Med 01/26/19 01:15 Active IV STAT Sodium Chloride 0.9% [Saline Flush] Med 01/26/19 00:18 Active 10 ml FLUSH ASDIRECTED PRN Sodium Chloride 0.9% [Saline Flush] Med 01/26/19 00:18 Active 2.5 ml FLUSH ASDIRECTED PRN Saline Lock Insert [OM.PC] Stat Oth 01/26/19 00:17 Ordered Medication Orders Sodium Chloride (Normal Saline) 500 mls @ 999 mls/hr IV STAT NICHOL Sodium Chloride (Saline Flush) 10 ml FLUSH ASDIRECTED PRN PRN Reason: Keep Vein Open Last Admin: 01/26/19 00:32 Dose: 10 ml Sodium Chloride (Saline Flush) 2.5 ml FLUSH ASDIRECTED PRN PRN Reason: Keep Vein Open Last Admin: 01/26/19 00:32 Dose: 2.5 ml Labs: Laboratory Tests 01/26/19 01/26/19 01/26/19 Range/Units 00:03 00:03 00:29 WBC 13.92 H (4.0-11.0) K/uL RBC 4.58 (4.30-5.90) M/uL Hgb 14.5 (12.0-16.0) g/dL Hct 41.3 (36.0-46.0) % MCV 90.2 (80.0-98.0) fL MCH 31.7 (27.0-32.0) pg MCHC 35.1 (31.0-37.0) g/dL RDW Std Deviation 40.6 (28.0-62.0) fl RDW Coeff of Arabella 13 (11.0-15.0) % Plt Count 251 (150-400) K/uL MPV 9.40 (7.40-12.00) fL Neut % (Auto) 82.8 H (48.0-80.0) % Lymph % (Auto) 9.8 L (16.0-40.0) % Stark % (Auto) 7.0 (0.0-15.0) % Eos % (Auto) 0.0 (0.0-7.0) % Baso % (Auto) 0.4 (0.0-1.5) % Neut # (Auto) 11.5 H (1.4-5.7) K/uL Lymph # (Auto) 1.4 (0.6-2.4) K/uL Stark # (Auto) 1.0 H (0.0-0.8) K/uL Eos # (Auto) 0.0 (0.0-0.7) K/uL Baso # (Auto) 0.1 (0.0-0.1) K/uL Lactate (0.20-2.00) mmol/L Sodium (136-145) mmol/L Potassium (3.5-5.1) mmol/L Chloride (98-107) mmol/L Carbon Dioxide (21.0-32.0) mmol/L BUN (7.0-18.0) mg/dL Creatinine (0.6-1.0) mg/dL Est Cr Clr Drug Dosing mL/min Estimated GFR (MDRD) ml/min Glucose (74-106) mg/dL Calcium (8.5-10.1) mg/dL Total Bilirubin (0.2-1.0) mg/dL AST (15-37) IU/L ALT (14-63) IU/L Alkaline Phosphatase (46-116) U/L Total Protein (6.4-8.2) g/dL Albumin (3.4-5.0) g/dL Globulin (2.6-4.0) g/dL Albumin/Globulin Ratio (0.9-1.6) Urine Color YELLOW Urine Appearance SLT CLOUDY Urine pH 7.0 (5.0-8.0) Ur Specific [place] 1.015 (1.001-1.035) Urine Protein TRACE H (NEGATIVE) mg/dL Urine Glucose (UA) NEGATIVE (NEGATIVE) mg/dL Urine Ketones >=80 (NEGATIVE) mg/dL Urine Occult Blood TRACE-INTACT H (NEGATIVE) Urine Nitrite NEGATIVE (NEGATIVE) Urine Bilirubin SMALL H (NEGATIVE) Urine Ictotest NEGATIVE Urine Urobilinogen 0.2 (<2.0) EU/dL Ur Leukocyte Esterase NEGATIVE (NEGATIVE) Urine RBC 0-1 (0-2/HPF) Urine WBC 0-1 (0-5/HPF) Ur Epithelial Cells FEW (NONE-FEW) Urine Bacteria RARE (NEGATIVE) Urine HCG, Qual NEGATIVE (NEGATIVE) 01/26/19 01/26/19 Range/Units 00:29 00:29 WBC (4.0-11.0) K/uL RBC (4.30-5.90) M/uL Hgb (12.0-16.0) g/dL Hct (36.0-46.0) % MCV (80.0-98.0) fL MCH (27.0-32.0) pg MCHC (31.0-37.0) g/dL RDW Std Deviation (28.0-62.0) fl RDW Coeff of Arabella (11.0-15.0) % Plt Count (150-400) K/uL MPV (7.40-12.00) fL Neut % (Auto) (48.0-80.0) % Lymph % (Auto) (16.0-40.0) % Stark % (Auto) (0.0-15.0) % Eos % (Auto) (0.0-7.0) % Baso % (Auto) (0.0-1.5) % Neut # (Auto) (1.4-5.7) K/uL Lymph # (Auto) (0.6-2.4) K/uL Stark # (Auto) (0.0-0.8) K/uL Eos # (Auto) (0.0-0.7) K/uL Baso # (Auto) (0.0-0.1) K/uL Lactate 1.5 (0.20-2.00) mmol/L Sodium 133 L (136-145) mmol/L Potassium 4.2 (3.5-5.1) mmol/L Chloride 98 (98-107) mmol/L Carbon Dioxide 23.0 (21.0-32.0) mmol/L BUN 9 (7.0-18.0) mg/dL Creatinine 0.9 (0.6-1.0) mg/dL Est Cr Clr Drug Dosing 66.84 mL/min Estimated GFR (MDRD) > 60.0 ml/min Glucose 100 (74-106) mg/dL Calcium 9.1 (8.5-10.1) mg/dL Total Bilirubin 0.6 (0.2-1.0) mg/dL AST 16 (15-37) IU/L ALT 18 (14-63) IU/L Alkaline Phosphatase 47 (46-116) U/L Total Protein 8.3 H (6.4-8.2) g/dL Albumin 4.2 (3.4-5.0) g/dL Globulin 4.1 H (2.6-4.0) g/dL Albumin/Globulin Ratio 1.0 (0.9-1.6) Urine Color Urine Appearance Urine pH (5.0-8.0) Ur Specific [place] (1.001-1.035) Urine Protein (NEGATIVE) mg/dL Urine Glucose (UA) (NEGATIVE) mg/dL Urine Ketones (NEGATIVE) mg/dL Urine Occult Blood (NEGATIVE) Urine Nitrite (NEGATIVE) Urine Bilirubin (NEGATIVE) Urine Ictotest Urine Urobilinogen (<2.0) EU/dL Ur Leukocyte Esterase (NEGATIVE) Urine RBC (0-2/HPF) Urine WBC (0-5/HPF) Ur Epithelial Cells (NONE-FEW) Urine Bacteria (NEGATIVE) Urine HCG, Qual (NEGATIVE) Meds: Medications Generic Name Dose Route Start Last Admin Trade Name Freq PRN Reason Stop Dose Admin Sodium Chloride 500 mls @ 999 mls/hr 01/26/19 01:15 Normal Saline IV STAT NICHOL Sodium Chloride 10 ml 01/26/19 00:18 01/26/19 00:32 Saline Flush FLUSH 10 ml ASDIRECTED PRN Administration Keep Vein Open Sodium Chloride 2.5 ml 01/26/19 00:18 01/26/19 00:32 Saline Flush FLUSH 2.5 ml ASDIRECTED PRN Administration Keep Vein Open Discontinued Medications Generic Name Dose Route Start Last Admin Trade Name Freq PRN Reason Stop Dose Admin Acetaminophen 650 mg 01/26/19 00:35 01/26/19 00:48 Tylenol PO 01/26/19 00:36 650 mg NOW ONE Administration Sodium Chloride 1,000 mls @ 999 mls/hr 01/26/19 00:18 01/26/19 00:29 Normal Saline IV 01/26/19 01:18 999 mls/hr STAT ONE Administration Ketorolac Tromethamine 30 mg 01/26/19 00:18 01/26/19 00:32 Toradol IVPUSH 01/26/19 00:19 30 mg ONETIME ONE Administration Lidocaine HCl 15 ml 01/26/19 00:36 01/26/19 00:48 Xylocaine 2% Viscous PO 01/26/19 00:37 15 ml ONETIME ONE Administration Departure - Departure Time of Disposition: 01:36 Disposition: Home, Self-Care 01 Condition: Good Clinical Impression: Dehydration, Odynophagia, Exudative tonsillitis - Discharge Information Referrals: PCP,None [Primary Care Provider] - Kenji Flowers MD [Ordering Only Provider] - Forms: ED Department Discharge Additional Instructions: The following information is given to patients seen in the emergency department who are being discharged to home. This information is to outline your options for follow-up care. We provide all patients seen in our emergency department with a follow-up referral. The need for follow-up, as well as the timing and circumstances, are variable depending upon the specifics of your emergency department visit. If you don't have a primary care physician on staff, we will provide you with a referral. We always advise you to contact your personal physician following an emergency department visit to inform them of the circumstance of the visit and for follow-up with them and/or the need for any referrals to a consulting specialist. The emergency department will also refer you to a specialist when appropriate. This referral assures that you have the opportunity for followup care with a specialist. All of these measure are taken in an effort to provide you with optimal care, which includes your followup. Under all circumstances we always encourage you to contact your private physician who remains a resource for coordinating your care. When calling for followup care, please make the office aware that this follow-up is from your recent emergency room visit. If for any reason you are refused follow-up, please contact the [facility] emergency department at and ask to speak to the emergency department charge nurse. [facility] Primary care- Internal Medicine and Family [address] [id number] Please use the medications you have been prescribed, Tylenol No. 3 elixir and the viscous lidocaine, to help with pain so that you can push hydration and eat bites of soft food. These connect with your provider at the clinic or [facility] for follow-up care and you have also been given resources for an ENT specialist if you would like to pursue follow-up with him, Dr. Flowers. Return to ER as needed as discussed. Continue to manage any fevers with [id number] Motrin/ ibuprofen. Keep in mind that the Tylenol No. 3 elixir does have Tylenol within it. - My Orders Last 24 Hours: My Active Orders 01/26/19 00:17 Saline Lock Insert [OM.PC] Stat 01/26/19 00:18 Sodium Chloride 0.9% [Saline Flush] 10 ml FLUSH ASDIRECTED PRN Sodium Chloride 0.9% [Saline Flush] 2.5 ml FLUSH ASDIRECTED PRN 01/26/19 01:15 Sodium Chloride 0.9% [Normal Saline] 500 ml IV STAT - Assessment/Plan Last 24 Hours: My Active Orders 01/26/19 00:17 Saline Lock Insert [OM.PC] Stat 01/26/19 00:18 Sodium Chloride 0.9% [Saline Flush] 10 ml FLUSH ASDIRECTED PRN Sodium Chloride 0.9% [Saline Flush] 2.5 ml FLUSH ASDIRECTED PRN 01/26/19 01:15 Sodium Chloride 0.9% [Normal Saline] 500 ml IV STAT
[2019-01-26] MEDS ORDERED: Acetaminophen 325 MG/10.15 ML ML PO ONE (00:35)
[2019-01-26] MEDS ORDERED: Lidocaine 2% Viscous Solution 15 ML Cup PO ONE (00:36)
[2019-01-26 01:02] LABS: BLOOD UREA NITROGEN,BUN 9 mg/dL (7.0-18.0); CHLORIDE,CL 98 mmol/L (98-107); GLUCOSE RANDOM 100 mg/dL (74-106); POTASSIUM,K 4.2 mmol/L (3.5-5.1); SODIUM,NA 133 mmol/L (136-145)
[2019-01-26] MEDS ORDERED: Sodium Chloride 0.9% 500 ML IV SCH (01:15)
[2019-01-26 02:17] VITALS: BP 80/48; PULSE 92
== END 2019-01-26 02:16 | disposition home or self-care (01) ==
LOC: MW.ED 23:44
DX: J03.90 Acute tonsillitis, unspecified (principal); E86.0 Dehydration; R13.10 Dysphagia, unspecified; R00.0 Tachycardia, unspecified; F17.210 Nicotine dependence, cigarettes, uncomplicated
CPT/HCPCS: 36415; 80053; 81001; 81025; 83605; 85025; 96361; 96374; 99284; A9270; J1885; J7040

== ENCOUNTER 2020-11-23 22:12 | Emergency (ER) | payer BC ==
--- NOTE | 2020-11-23 22:32 | EDM.PDOC ---
ED HPI GENERAL MEDICAL PROBLEM - General Chief Complaint: ENT Problem Stated Complaint: POSSIBLE LT ABCESS TOOTH, FACE SWELLING Time Seen by Provider: 11/23/20 22:21 Source of Information: Reports: Patient History Limitations: Reports: No Limitations - History of Present Illness INITIAL COMMENTS - FREE TEXT/NARRATIVE: Patient is a 30-year-old female presents today for tooth pain. Patient states that she ordered this yesterday and was given amoxicillin however the pain is increasing so is a swelling to her right upper jaw. She is still able to see them here but has increased pain she tried [id number] medication without relief. She denies any difficulty swallowing breathing no fever chills nausea vomiting or other complaints. 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 Musculoskeletal History: Reports: None Neurological History: Reports: None Psychiatric History: Reports: None Endocrine/Metabolic History: Reports: None Hematologic History: Reports: None Immunologic History: Reports: None Oncologic (Cancer) History: Reports: None Dermatologic History: Reports: None - Infectious Disease History Infectious Disease History: Reports: Chicken Pox - Past Surgical History Head Surgeries/Procedures: Reports: None HEENT Surgical History: Reports: None Cardiovascular Surgical History: Reports: None Respiratory Surgical History: Reports: None GI Surgical History: Reports: None Female Surgical History: Reports: None Endocrine Surgical History: Reports: None Neurological Surgical History: Reports: None Musculoskeletal Surgical History: Reports: None Oncologic Surgical History: Reports: None Dermatological Surgical History: Reports: None Social & Family History - Family History Family Medical History: No Pertinent Family History - Caffeine Use Caffeine Use: Reports: Coffee, Energy Drinks, Tea ED ROS ENT - Review of Systems Review Of Systems: See Below Constitutional: Reports: No Symptoms HEENT: Reports: Dental Pain Respiratory: Reports: No Symptoms Endocrine: Reports: No Symptoms GI/Abdominal: Reports: No Symptoms : Reports: No Symptoms Musculoskeletal: Reports: No Symptoms Skin: Reports: No Symptoms Neurological: Reports: No Symptoms Psychiatric: Reports: No Symptoms Hematologic/Lymphatic: Reports: No Symptoms Immunologic: Reports: No Symptoms ED EXAM, ENT - Physical Exam Exam: See Below Exam Limited By: No Limitations General Appearance: Alert, WD/WN, No Apparent Distress Eye Exam: Bilateral Eye: EOMI, PERRL Ears: Normal External Exam, Normal TMs Mouth/Throat: Dental Abcess Head: Atraumatic, Normocephalic Respiratory/Chest: No Respiratory Distress Cardiovascular: Normal Peripheral Pulses Extremities: Normal Inspection Neurological: Alert, Oriented Course - Vital Signs Last Recorded V/S: Last Vital Signs Temp 97.0 F 11/23/20 22:22 Pulse 90 11/23/20 22:22 Resp 16 11/23/20 22:22 BP 108/63 11/23/20 22:22 Pulse Ox 96 11/23/20 22:22 Departure - Departure Time of Disposition: 22:31 Disposition: Home, Self-Care 01 Condition: Good Clinical Impression: Dental abscess - Discharge Information *PRESCRIPTION DRUG MONITORING PROGRAM REVIEWED*: Not Applicable *COPY OF PRESCRIPTION DRUG MONITORING REPORT IN PATIENT JASON: Not Applicable Instructions: Dental Abscess, [id number] Referrals: PCP,None [Primary Care Provider] - Additional Instructions: The following information is given to patients seen in the emergency department who are being discharged to home. This information is to outline your options for follow-up care. We provide all patients seen in our emergency department with a follow-up referral. The need for follow-up, as well as the timing and circumstances, are variable depending upon the specifics of your emergency department visit. If you don't have a primary care physician on staff, we will provide you with a referral. We always advise you to contact your personal physician following an emergency department visit to inform them of the circumstance of the visit and for follow-up with them and/or the need for any referrals to a consulting specialist. The emergency department will also refer you to a specialist when appropriate. This referral assures that you have the opportunity for follow-up care with a specialist. All of these measure are taken in an effort to provide you with optimal care, which includes your follow-up. Under all circumstances we always encourage you to contact your private physician who remains a resource for coordinating your care. When calling for follow-up care, please make the office aware that this follow-up is from your recent emergency room visit. If for any reason you are refused follow-up, please contact the [facility] Emergency Department at and asked to speak to the emergency department charge nurse. Please follow up with your primary care physician. If you do not have a primary care physician, see below: [facility] [address] [place] [id number] My [facility] [address] [place] [address] You are seen today for dental pain. You were seen by dentist and given antibiotics however he said your pain is increasing we can switch antibiotics for you and provide you pain control. We recommend you follow-up with a dentist again for further care as ER does not handle dental issues such as pulling out teeth. Sepsis Event Note (ED) - Focused Exam Vital Signs: Vital Signs Temp Pulse Resp BP Pulse Ox 11/23/20 22:22 97.0 F 90 16 108/63 96 - Assessment/Plan Plan: Patient is a 30-year-old female presents today for dental pain. Patient states she was on antibiotics but her swelling is getting worse. We will switch her antibiotics to clindamycin and provide pain control and discharge patient home.
[2020-11-23 23:05] VITALS: BP 102/69; PULSE 87
== END 2020-11-23 22:40 | disposition home or self-care (01) ==
LOC: MW.ED 22:12
DX: K04.7 Periapical abscess without sinus (principal)
CPT/HCPCS: 99283

== ENCOUNTER 2021-03-03 23:13 | Emergency (ER) | payer BC ==
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
[2021-03-04 01:34] VITALS: BP 128/71; PULSE 75
== END 2021-03-04 01:34 | disposition home or self-care (01) ==
LOC: MW.ED 23:13
DX: S01.01XA Laceration without foreign body of scalp, initial encounter (principal); S40.011A Contusion of right shoulder, initial encounter; K21.9 Gastro-esophageal reflux disease without esophagitis; Y04.2XXA Assault by strike against or bumped into by another person, initial encounter
CPT/HCPCS: 73030-26-RT; 73030-RT; 81025; 99284-25